=== PATIENT | female | born 2000 | race Caucasian/White ===

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

== ENCOUNTER 2020-04-22 12:16 | Emergency (ER) | payer SELFPAY ==
[2020-04-22 12:23] VITALS: BP 136/94; PULSE 84; RESP 16; TEMP 36.7; O2SAT 100; BMI 28.1
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
== END 2020-04-22 12:46 | disposition home or self-care (01) ==
PROVIDERS: Emergency Provider Nurse Practitioner Family; PCP Family Medicine
DX: S41.012A Laceration without foreign body of left shoulder, initial encounter (principal); W25.XXXA Contact with sharp glass, initial encounter; Z87.891 Personal history of nicotine dependence
CPT/HCPCS: 12345; 99281

== ENCOUNTER → 2021-03-06 13:10 | Outpatient (BNVA) | payer OTHER, SELFPAY | PROVIDERS: PCP Family Medicine; Visit Provider Nurse Practitioner Family | DX: Z20.822 Contact with and (suspected) exposure to COVID-19 (principal) | CPT/HCPCS: 87635 ==

== ENCOUNTER 2022-12-24 14:32 | Emergency (ER) | payer SELFPAY ==
[2022-12-24 14:35] VITALS: BP 135/88; PULSE 115; RESP 16; TEMP 37.5; O2SAT 99; BMI 36.0
--- NOTE | 2022-12-24 14:56 | W.ED.FEMALGU ---
HPI - Female Genitourinary General: Chief complaint: Urogenital-Female Stated complaint: urogenital Time Seen by Provider: 12/24/22 14:43 Source: patient Mode of arrival: ambulatory Limitations: no limitations History of Present Illness: 22-year-old female presents to the ER today with 2 days of dysuria, low back pain, and increased urinary frequency. Patient denies any fever or chills. Patient reports she has had 1 other UTI before and this feels similar. Patient denies any chance of . Reports last menstrual cycle was 2 weeks ago. Patient has not taken anything [id number] for her symptoms at this time. Review of Systems General: Reports: 10 or more systems reviewed and unremarkable except in HPI and below PFSH ED PFSH: Medical History (Updated 12/24/22 @ 16:08 by Deann Mccormick PA-C) No pertinent past medical history Surgical History No history of previous surgery Social History Smoking and tobacco status: former smoker Alcohol intake: never Substance/Drug Use: never Physical Exam Const: COMMON NORMALS: no acute distress, average body habitus, patient oriented x3, no limitations, healthy appearing, alert and well nourished Resp: COMMON NORMALS: normal respiratory effort EFFORT & INSPECTION: Yes able to speak in complete sentences Cardio: COMMON NORMALS: regular rate, regular rhythm and No murmurs present (Cardio) RATE: regular rate RHYTHM: regular rhythm GI: COMMON NORMALS: Normal to inspection, nondistended, normoactive bowel sounds present, Soft to palpation and non-tender PALPATION: Yes Soft to palpation OTHER: No CVA tenderness, no flank tenderness, no suprapubic tenderness on exam : COMMON NORMALS: Yes no CVA tenderness BLADDER/KIDNEY EXAM: Yes no CVA tenderness Back/Pelvis: COMMON NORMALS: no CVA tenderness Extremity: COMMON NORMALS: normal to inspection and full ROM Neuro: COMMON NORMALS: patient oriented x3 SENSORIUM/ORIENTATION: Yes alert Psych: COMMON NORMALS: mental status grossly normal, Normal thought process present and cooperative THOUGHT PROCESS: Normal thought process present Skin: COMMON NORMALS: no rashes or lesions noted and no wounds GENERAL SKIN EXAM: no rashes or lesions noted Course ED course: Patient presents to the ER today for urinary symptoms x2 days. Patient is noted to have a low-grade temp and mild tachycardia. No suprapubic tenderness. No flank or CVA tenderness. We will get a UA at this time along with a test. Vital Signs: Vital signs: Vital Signs Temperature 99.5 F 12/24/22 14:35 Pulse Rate 115 H 12/24/22 14:35 Respiratory Rate 16 12/24/22 14:35 Blood Pressure 135/88 12/24/22 14:35 Pulse Oximetry 99 12/24/22 14:35 Oxygen Delivery Me thod Room Air 12/24/22 14:35 MDM - Female Medical Decision Making Patient has classic UTI symptoms. UA does indicate a UTI with 3+ blood and 2+ leukocytes. Culture will be sent. Pending test. We will treat with Macrobid x5 days. Push fluids. Okay to take Azo for the next several days for symptom relief. Follow-up with PCP in 3 to 5 days if no improvement. Return to the ER with new or worsening symptoms. Lab Data Laboratory Results Urine Color Yellow (Yellow) 12/24/22 14:41 Urine Appearance Cloudy (CLEAR) A 12/24/22 14:41 Urine pH 8 (5-7) H 12/24/22 14:41 Ur Specific [place] 1.015 (1.005-1.030) 12/24/22 14:41 Urine Protein Neg (Negative) 12/24/22 14:41 Urine Glucose (UA) Norm (Normal) 12/24/22 14:41 Urine Ketones Negative (Negative) 12/24/22 14:41 Urine Blood 3+ (Negative) H 12/24/22 14:41 Urine Nitrate Negative (Negative) 12/24/22 14:41 Urine Bilirubin Neg (Negative) 12/24/22 14:41 Urine Urobilinogen Norm mg/dL (Negative) 12/24/22 14:41 Ur Leukocyte Esterase 2+ (Negative) H 12/24/22 14:41 Urine RBC 10-15 /hpf (0-2) H 12/24/22 14:41 Urine WBC 55-80 /hpf (0-5) H 12/24/22 14:41 Ur Squamous Epith Cells 0-4 /hpf (0-5) H 12/24/22 14:41 Amorphous Sediment Not Reportable 12/24/22 14:41 Urine Bacteria Trace /hpf (NONE) 12/24/22 14:41 Urine Mucus 1+ /hpf 12/24/22 14:41 Critical Care Time Critical Care Time: Critical Care Time: No Discharge Plan Discharge Patient Disposition: Home Clinical Impression: Urinary tract infection Qualifiers: Urinary tract infection type: acute cystitis Hematuria presence: with hematuria Qualified Code(s): N30.01 - Acute cystitis with hematuria Condition: Stable Prescriptions: New Macrobid 100 mg capsule 100 mg PO BID 5 Days Qty: 10 0RF Rx Instructions: must administer with a meal/food Discharge Orders: Discharge ED (Routine); Ordered 12/24/22 Ordered By: Deann Mccormick Discharge Diet: Usual diet Discharge Activity: Resume usual activity Patient Instructions: Opioid Safety, Pain Management Activity Restrictions/Additional Instructions: Take Macrobid as prescribed. Push fluids. Okay to use [id number] Azo Standard for symptomatic relief for the next 48 hours. Follow-up with PCP in 3 to 5 days if no improvement. Return to ER with new or worsening symptoms. Coding Level of Care Code ED Plate Corrector for Silva Levi
[2022-12-24 16:05] LABS: Add Urine Microscopic? YES; Bilirubin Urine Neg (Negative); Blood Urine 3+ (Negative); Glucose Urine UA Norm (Normal); Ketones Urine Negative (Negative); Leukocyte Esterase Urine 2+ (Negative); Nitrate Urine Negative (Negative); Protein Urine Neg (Negative); Specific Gravity, Urine 1.015 (1.005-1.030); Urine Appearance Cloudy (CLEAR); Urine Color Yellow (Yellow); Urobilinogen Urine Norm (Negative); pH Urine 8 (5-7)
[2022-12-24 16:06] LABS: Add Urine Culture? Yes; Bacteria Urine TRACE /hpf; Mucus Urine 1+ /hpf; Squamous Epithelial Cell Urine 0-4 /hpf (0-5); WBC Urine 55-80 /hpf (0-5)
[2022-12-24 16:32] LABS: HCG Qualitative Urine. Negative (Negative)
--- NOTE | 2022-12-31 10:03 | DCPLANNER ---
farm field manager called patient due to no primary care physician - no answer at this time.
== END 2022-12-24 16:15 | disposition home or self-care (01) ==
PROVIDERS: Emergency Provider Physician Assistant
DX: N30.01 Acute cystitis with hematuria (principal); Z87.891 Personal history of nicotine dependence
CPT/HCPCS: 81001; 81025; 87086; 99283

== ENCOUNTER 2023-01-04 13:24 | Emergency (ER) | payer SELFPAY ==
[2023-01-04 13:44] VITALS: BP 129/85; PULSE 76; RESP 16; TEMP 36.9; O2SAT 100; BMI 36.0
--- NOTE | 2023-01-04 13:57 | W.ED.FEMALGU ---
HPI - Female Genitourinary General: Chief complaint: Urogenital-Female Stated complaint: urogenital Time Seen by Provider: 01/04/23 13:55 Source: patient Mode of arrival: ambulatory Limitations: no limitations History of Present Illness: Patient is a 22-year-old female presents to ED today with a complaint of right-sided pelvic pain, difficulty with urination, lower back pain. She was seen here approximately 10 days ago and had some complaints of dysuria at that time. UA looks suspicious for UTI (had 2+ leuks and 55-80 wbcs) thus patient was placed on antibiotics (Macrobid). She states she has finished her antibiotic course. Urine was cultured and I was able to view these results which showed mixed superficial raheem. Patient states her symptoms have progressively worsened since that visit. She states she recently started her menstrual cycle but states that the cramping and pain that she has having is not characteristic of menstrual cramps. Patient states she has had a new sexual partner within the last month. She states he is in the and thinks he gets frequent STD testing. She states she has not noticed any worsening vaginal discharge apart from her normal . Her main complaint is feeling like she cannot urinate/empty bladder. MD elicited complaint: pelvic pain, difficulty urinating and other (difficulty urinating, R pelvic pain, low back pain) Onset (ago): day(s) Severity: moderate Quality of pain: cramping and sharp Consistency: constant Vaginal bleeding: moderate Urinary symptoms: Difficulty Urinating Exacerbating factors: urination Relieving factors: none Associated symptoms: Reports no associated symptoms, abdominal pain, nausea and vaginal bleeding (small amount of menstrual blood); Deny headache(s) Treatment prior to arrival: none Sexual activity: Yes and New Sexual Partners Patient : No Review of Systems Const: Denies: fever(s), chills, body aches, fatigue or malaise Card: Denies: chest pain Resp: Denies: dyspnea GI: Reports: abdominal pain, nausea and constipation; Denies: vomiting, rectal pain, rectal itching, hematochezia or melena : Reports: difficulty voiding, vaginal bleeding and pelvic pain; Denies: flank pain, dysuria, urinary frequency, urinary urgency, urinary hesitancy, hematuria or vaginal odor Musc: Reports: back pain; Denies: neck pain, extremity pain or joint pain Skin/Breast: Denies: rash Neuro: Denies: headache(s), numbness in extremities, weakness in extremities or sensory changes PFSH ED PFSH: Medical History (Updated 01/04/23 @ 17:19 by DIPTI Sanchez) No pertinent past medical history Surgical History No history of previous surgery Social History Smoking and tobacco status: former smoker Alcohol intake: never Substance/Drug Use: never Physical Exam Const: COMMON NORMALS: no acute distress, patient oriented x3, no limitations, alert and well nourished GENERAL APPEARANCE: cooperative NUTRITIONAL APPEARANCE: obese ORIENTATION/CONSCIOUSNESS: Yes awake, Yes oriented to person, Yes oriented to place and Yes oriented to time Resp: COMMON NORMALS: normal respiratory effort and clear to auscultation bilaterally AUSCULTATION: clear to auscultation bilaterally Cardio: COMMON NORMALS: regular rate and regular rhythm RATE: regular rate RHYTHM: regular rhythm GI: COMMON NORMALS: Normal to inspection, nondistended, normoactive bowel sounds present, Soft to palpation, No hepatosplenomegaly present and no masses INSPECTION: Yes normal to inspection AUSCULTATION: Yes normoactive bowel sounds PALPATION: Yes Soft to palpation, Yes Tenderness to palpation present (GI), No Guarding due to palpation present (GI), No Rigid due to palpation and Yes No hepatosplenomegaly present OTHER: patient is seated in a recliner making examination less than ideal but she seems to have most of her discomfort to her R pelvis; did not seem to have tenderness overlying McBurney's Point; patient will eventually be moved to a room for pelvic exam : COMMON NORMALS: Yes no CVA tenderness and Yes normal bimanual exam BLADDER/KIDNEY EXAM: Yes no CVA tenderness EXTERNAL FEMALE EXAM: Yes normal appearance of the urethra SPECULUM EXAM - VAGINA: Yes vaginal bleeding (small amount of menstrual blood) and No tissue present in vagina SPECULUM EXAM - CERVIX: No mucoid cervix, No watery cervix, No Abnormal cervical discharge present and No Cervical lesion present BIMANUAL EXAM - VAGINA & UTERUS: Yes normal bimanual exam OB/EXTERNAL & SPECULUM: vaginal bleeding (small amount of menstrual blood); no tissue noted in vagina Back/Pelvis: COMMON NORMALS: no CVA tenderness, thoracic and lumbar spine normal to inspection, no thoracic nor lumbar tenderness and thoraco-lumbar ROM normal Extremity: COMMON NORMALS: normal to inspection GENERAL: Yes normal exam except as noted Neuro: SURINDER COMA SCALE: document GCS findings Mas[place] coma scale eye opening: Spontaneous Mas[place] coma scale verbal response: Orientated Surinder coma scale motor response: Obey commands Masury coma scale total score: 15 COMMON NORMALS: patient oriented x3 SENSORIUM/ORIENTATION: Yes alert, Yes oriented to person, Yes oriented to place and Yes oriented to time Course ED course: Post-void residual urine volume roughly 150ml Vital Signs: Vital signs: Vital Signs Temperature 98.4 F 01/04/23 13:44 Pulse Rate 69 01/04/23 17:31 Respiratory Rate 16 01/04/23 17:01 Blood Pressure 134/81 01/04/23 17:31 Pulse Oximetry 97 01/04/23 17:31 Oxygen Delivery Me thod Room Air 01/04/23 17:01 MDM - Female Medical Decision Making Patient's ultrasound showing findings most likely related to her menstrual cycle. This can be reevaluated through women's health which I have placed a referral for. She does have a right ovary that demonstrates PCOS. This could be the etiology of her right-sided pelvic pain. On her pelvic exam I do not appreciate any findings consistent with a PID. Wet prep is normal. Gonorrhea/chlamydia is pending. Patient's symptoms of difficulty with urination and lower back pain seem consistent with an acute cystitis. On her UA today she did have positive nitrates, 2+ leuks, 10-15 WBCs, 4+ bacteria. She did have a large amount of blood but she is currently on her menstrual cycle. At this time I would favor cystitis versus STI/PID. We will go ahead and place her on Cipro. We will culture urine. I did go ahead and place referrals for women's health as well as a primary care provider for further follow-up. Lab Data 01/04/23 14:06 01/04/23 14:06 Radiology Impressions Pelvic/Transvag US 01/04/23 15:03 IMPRESSION: 1. Mildly distended endometrial canal with increased echogenicity. Favor blood products and may be related to the patient's menstrual cycle. This should be reevaluated after the menstrual cycle has resolved. 2. RIGHT ovary demonstrates PCOS. The LEFT ovary is only visualized on transabdominal imaging and also mildly enlarged. Peripheral follicles that would support PCOS are not well seen. Laboratory Results WBC 11.1 10^3/uL (4.0-10.0) H 01/04/23 14:06 RBC 4.35 10^6/uL (4.1-5.3) 01/04/23 14:06 Hgb 12.2 g/dL (11.5-15.3) 01/04/23 14:06 Hct 38.9 % (37.0-47.0) 01/04/23 14:06 MCV 89.4 fl (81-99) 01/04/23 14:06 MCH 28.0 pg (28.0-34.0) 01/04/23 14:06 MCHC 31.4 g/dL (30.0-36.0) 01/04/23 14:06 RDW 12.9 % (12.1-15.1) 01/04/23 14:06 Plt Count 332 10^3/cmm (130-400) 01/04/23 14:06 MPV 9.7 fL (7.4-10.4) 01/04/23 14:06 Neut % (Auto) 69.6 % 01/04/23 14:06 Lymph % (Auto) 21.0 % 01/04/23 14:06 [place] % (Auto) 8.1 % 01/04/23 14:06 Eos % (Auto) 0.3 % 01/04/23 14:06 Baso % (Auto) 0.5 % 01/04/23 14:06 Neut # (Auto) 7.71 10^3/uL (1.8-7.7) H 01/04/23 14:06 Lymph # (Auto) 2.3 10^3/uL (0.8-4.8) 01/04/23 14:06 [place] # (Auto) 0.9 10^3/uL (0.2-0.9) 01/04/23 14:06 Eos # (Auto) 0.0 10^3/uL (0.0-0.8) 01/04/23 14:06 Baso # (Auto) 0.1 10^3/uL (0.0-0.1) 01/04/23 14:06 Nucleated RBC % (auto) 0 % 01/04/23 14:06 Nucleated RBCs # 0.0 /100WBC 01/04/23 14:06 Sodium 136 mmol/L (136-145) 01/04/23 14:06 Potassium 3.7 mmol/L (3.5-5.1) 01/04/23 14:06 Chloride 101 mmol/L (98-107) 01/04/23 14:06 Carbon Dioxide 25 mmol/L (22-29) 01/04/23 14:06 Anion Gap 13.7 (5-19) 01/04/23 14:06 BUN 8 mg/dL (6-20) 01/04/23 14:06 Creatinine 0.8 mg/dL (0.5-0.9) 01/04/23 14:06 GFR Calculation 89.7 mL/min (90-130) L 01/04/23 14:06 Glucose 101 mg/dL (65-115) 01/04/23 14:06 Calculated Osmolality 280 mOsm/kg (285-295) L 01/04/23 14:06 Calcium 9.0 mg/dL (8.5-10.5) 01/04/23 14:06 Total Bilirubin 0.3 mg/dL (0.15-1.2) 01/04/23 14:06 AST 16 U/L (0-32) 01/04/23 14:06 ALT 21 U/L (0-33) 01/04/23 14:06 Alkaline Phosphatase 72 U/L (35-105) 01/04/23 14:06 Total Protein 8.0 g/dL (6.6-8.7) 01/04/23 14:06 Albumin 4.3 g/dL (3.5-5.2) 01/04/23 14:06 Globulin 3.7 g/dL (1.3-4.6) 01/04/23 14:06 HCG, Qual Negative (Negative) 01/04/23 14:06 Urine Color Red (Yellow) 01/04/23 16:06 Urine Appearance Turbid (CLEAR) A 01/04/23 16:06 Urine pH 5 (5-7) 01/04/23 16:06 Ur Specific [place] 1.010 (1.005-1.030) 01/04/23 16:06 Urine Protein 1+ (Negative) H 01/04/23 16:06 Urine Glucose (UA) Norm (Normal) 01/04/23 16:06 Urine Ketones Negative (Negative) 01/04/23 16:06 Urine Blood 3+ (Negative) H 01/04/23 16:06 Urine Nitrate Positive (Negative) H 01/04/23 16:06 Urine Bilirubin Neg (Negative) 01/04/23 16:06 Urine Urobilinogen Norm mg/dL (Negative) 01/04/23 16:06 Ur Leukocyte Esterase 2+ (Negative) H 01/04/23 16:06 Urine RBC 50-80 /hpf (0-2) H 01/04/23 16:06 Urine WBC 10-15 /hpf (0-5) H 01/04/23 16:06 Ur Squamous Epith Cells 0-4 /hpf (0-5) H 01/04/23 16:06 Amorphous Sediment Not Reportable 01/04/23 16:06 Urine Bacteria 4+ /hpf (NONE) H 01/04/23 16:06 Urine Mucus 2+ /hpf 01/04/23 16:06 Discharge Plan Discharge Patient Disposition: Home Clinical Impression: Cystitis Condition: Stable Prescriptions: New Cipro 500 mg tablet 500 mg PO Q12H Qty: 14 0RF Discharge Orders: Discharge ED (Routine); Ordered 01/04/23 Ordered By: Brynn Carrasquillo Coding Level of Care Code ED Director Of Vocational Training for Silva Levi
[2023-01-04 14:39] LABS: Basophils # 0.1 10^3/uL (0.0-0.1); Basophils % 0.5 %; Eosinophils % 0.3 %; Hematocrit 38.9 % (37.0-47.0); Hemoglobin 12.2 g/dL (11.5-15.3); Lymphocytes # 2.3 10^3/uL (0.8-4.8); Mean Corpuscular HGB Conc 31.4 g/dL (30.0-36.0); Mean Corpuscular Volume 89.4 fl (81-99); Mean Platelet Volume 9.7 fL (7.4-10.4); Monocytes # 0.9 10^3/uL (0.2-0.9); Monocytes % 8.1 %; Neutrophils # 7.71 10^3/uL (1.8-7.7); Neutrophils % 69.6 %; Nucleated Red Blood Cells % 0 %; Platelet Count 332 10^3/cmm (130-400); Red Blood Count 4.35 10^6/uL (4.1-5.3); Red Cell Distribution Width 12.9 % (12.1-15.1); White Blood Count 11.1 10^3/uL (4.0-10.0)
[2023-01-04 14:55] LABS: Alanine Aminotransferase 21 U/L (0-33); Albumin Level 4.3 g/dL (3.5-5.2); Alkaline Phosphatase 72 U/L (35-105); Anion Gap 13.7 (5-19); Aspartate Amino Transferase 16 U/L (0-32); Blood Urea Nitrogen 8 mg/dL (6-20); Carbon Dioxide 25 mmol/L (22-29); Chloride 101 mmol/L (98-107); Globulin 3.7 g/dL (1.3-4.6); Glomerular Filtration Rate 89.7 mL/min (90-130); Glucose 101 mg/dL (65-115); Osmolality Calculated 280 mOsm/kg (285-295); Potassium 3.7 mmol/L (3.5-5.1); Sodium 136 mmol/L (136-145); Total Bilirubin 0.3 mg/dL (0.15-1.2)
[2023-01-04 14:56] LABS: HCG, Serum Qual Negative (Negative)
--- NOTE | 2023-01-04 15:03 | US_ITS ---
WS: [id number] US pelv w/transvag [id number] HISTORY: R pelvic pain COMPARISON: None available. Uterus: 5.1 cm x 4.4 cm x 3.6 cm. Anteverted uterus is small caliber. No fibroid. Endometrium: 1.5 cm. Abnormal appearance of the endometrial canal. There is increased echogenicity wi thin the endometrial canal with distention and loss of the normal junctional zone. Right ovary: 4.4 cm x 3.2 cm x 2.1 cm. Volume 15.6 cc. Enlarged ovary with numerous peripheral follic les of similar size. Number of follicles greater than 20. Consistent with polycystic ovarian syndrome . Left ovary: 3.2 cm x 2.1 cm x 2.9 cm. Volume 10.3 cc. Mildly enlarged ovary. There is several small p eripheral follicles. This ovary as only visualized on transverse abdominal exam. No free fluid in the cul-de-sac. US/US pelv w/transvag [id number] IMPRESSION: 1. Mildly distended endometrial canal with increased echogenicity. Favor blood products and may be related to the patient's menstrual cycle. This should be r eevaluated after the menstrual cycle has resolved. 2. RIGHT ovary demonstrates PCOS. The LEFT ovary is only visualized on transa bdominal imaging and also mildly enlarged. Peripheral follicles that would supp ort PCOS are not well seen.
[2023-01-04 16:32] LABS: Add Urine Microscopic? YES; Bilirubin Urine Neg (Negative); Blood Urine 3+ (Negative); Glucose Urine UA Norm (Normal); Ketones Urine Negative (Negative); Leukocyte Esterase Urine 2+ (Negative); Nitrate Urine Positive (Negative); Protein Urine 1+ (Negative); Urine Appearance Turbid (CLEAR); Urine Color Red (Yellow); Urobilinogen Urine Norm (Negative); pH Urine 5 (5-7)
[2023-01-04 16:33] LABS: RBC Urine 50-80 /hpf (0-2)
[2023-01-04 16:35] LABS: Add Urine Culture? Yes; Bacteria Urine 4+ /hpf; Mucus Urine 2+ /hpf; Squamous Epithelial Cell Urine 0-4 /hpf (0-5)
[2023-01-04 17:01] VITALS: BP 127/83; PULSE 86; RESP 16; O2SAT 99
[2023-01-04 17:31] VITALS: BP 134/81; PULSE 69; O2SAT 97
--- NOTE | 2023-01-05 07:57 | DCPLANNER ---
Addendum entered by Mariela Youngblood 02/04/23 11:02: Patient had a follow up appointment scheduled with [facility] - patient did not attend appointment Addendum entered by Mariela Youngblood 01/05/23 11:03: Patient has a follow up appointment scheduled for Tuesday, February 02, 2023 at 2:30 with Kacy Silva at [facility]. Original Note: e business project manager had message to schedule a follow up appointment for patient with [facility]. e business project manager sent patients information to the front office staff at [facility]. Patients information will be printed and reviewed. Clinic will call patient with appointment information.
--- NOTE | 2023-01-05 09:40 | DCPLANNER ---
government sales manager called patient due to no primary care physician. Patient stated that she does not have any insurance at this time. government sales manager gave patient the information for [facility], where patient can apply for the sliding scale.
== END 2023-01-04 17:30 | disposition home or self-care (01) ==
PROVIDERS: Emergency Provider Physician Assistant
DX: M54.50 Low back pain, unspecified (principal); N30.90 Cystitis, unspecified without hematuria
CPT/HCPCS: 36415; 51798; 76830; 76856; 80053; 81001; 84703; 85025; 87077; 87086; 87186; 87210; 87491; 87591; 99284; E0352

== ENCOUNTER 2023-12-23 05:44 | Inpatient (IN) | payer SELFPAY ==
[2023-12-23 05:44] VITALS: BP 157/109; PULSE 135; RESP 16; TEMP 36.8; O2SAT 97; BMI 25.0
--- NOTE | 2023-12-23 05:54 | W.ED.PSYCHS ---
HPI - Psych General: Chief Complaint: Psychiatric Symptoms Stated Complaint: SI Time Seen by Provider: 12/23/23 05:46 Source: patient, EMS and police Mode of arrival: EMS Limitations: no limitations History of Present Illness: 23-year-old female states she been depressed for quite some time she states that she is having active suicidal thoughts currently no longer wants to live. She is not on any medication she states she does not have a psychiatrist and needs help. Denies any worse improving factors she is tearful and anxious here. Associated symptoms: Reports depression and suicidal ideation Review of Systems Const: Denies: fever(s), chills, body aches or change in appetite ENMT: Denies: throat pain or dental pain Card: Denies: chest pain Resp: Denies: dyspnea GI: Denies: abdominal pain, nausea, vomiting or diarrhea Musc: Denies: neck pain or back pain Skin/Breast: Denies: rash Neuro: Denies: headache(s) Psych: Reports: depression and suicidal ideation [facility] ED PFSH: Medical History (Updated 12/23/23 @ 06:58 by Phani Gruber MD) No pertinent past medical history Surgical History No history of previous surgery Family History Denies family history of Colon cancer Ovarian cancer Diabetes Heart disease Hyperlipidemia Breast cancer Hypertension Uterine cancer Thyroid disease Stroke Physical Exam Const: COMMON NORMALS: no acute distress, patient oriented x3 and healthy appearing HENMT: COMMON NORMALS: normocephalic and atraumatic HEAD & SCALP: normocephalic and atraumatic Neck/C-Spine: COMMON NORMALS: full ROM and supple Chest: COMMONS NORMALS: normal inspection of the chest Resp: COMMON NORMALS: normal respiratory effort Extremity: COMMON NORMALS: normal to inspection and full ROM Neuro: COMMON NORMALS: patient oriented x3, moves all extremities and no focal motor deficits Psych: COMMON NORMALS: mental status grossly normal, Normal thought process present and cooperative THOUGHT PROCESS: Normal thought process present THOUGHT CONTENT: Yes Suicidality present Skin: COMMON NORMALS: no rashes or lesions noted and no wounds GENERAL SKIN EXAM: no rashes or lesions noted Course Vital Signs: Vital signs: Vital Signs Temperature 98.3 F 12/23/23 05:44 Pulse Rate 135 H 12/23/23 05:44 Respiratory Rate 16 12/23/23 05:44 Blood Pressure 157/109 12/23/23 05:44 Pulse Oximetry 97 12/23/23 05:44 MDM - Psych Medical Decision Making Patient presents here with depression along with suicidal ideations she is medically cleared spoke to psychiatrist will admit at this time. Medical Records I reviewed the patient's medical records. Lab Data I reviewed the patient's lab results. 12/23/23 06:05 12/23/23 06:05 Laboratory Results WBC 11.59 10^3/uL (3.29-11.43) H 12/23/23 06:05 RBC 4.59 10^6/uL (3.85-5.65) 12/23/23 06:05 Hgb 12.60 g/dL (11.27-16.99) 12/23/23 06:05 Hct 40.1 % (36-47) 12/23/23 06:05 MCV 87.4 fl (85-98) 12/23/23 06:05 MCH 27.5 pg (27-33) 12/23/23 06:05 MCHC 31.4 g/dL (30-55) 12/23/23 06:05 RDW 13.2 % (12.1-15.1) 12/23/23 06:05 Plt Count 310 10^3/cmm (157-399) 12/23/23 06:05 MPV 10.8 fL (7.4-10.4) H 12/23/23 06:05 Neut % (Auto) 56.8 % 12/23/23 06:05 Lymph % (Auto) 35.5 % 12/23/23 06:05 [place] % (Auto) 5.5 % 12/23/23 06:05 Eos % (Auto) 1.5 % 12/23/23 06:05 Baso % (Auto) 0.4 % 12/23/23 06:05 Neut # (Auto) 6.58 10^3/uL (1.8-7.7) 12/23/23 06:05 Lymph # (Auto) 4.1 10^3/uL (0.8-4.8) 12/23/23 06:05 [place] # (Auto) 0.6 10^3/uL (0.2-0.9) 12/23/23 06:05 Eos # (Auto) 0.2 10^3/uL (0.0-0.8) 12/23/23 06:05 Baso # (Auto) 0.1 10^3/uL (0.0-0.1) 12/23/23 06:05 Nucleated RBC % (auto) 0 % 12/23/23 06:05 Nucleated RBCs # 0.0 /100WBC 12/23/23 06:05 Sodium 138 mmol/L (136-145) 12/23/23 06:05 Potassium 3.5 mmol/L (3.5-5.1) 12/23/23 06:05 Chloride 103 mmol/L (98-107) 12/23/23 06:05 Carbon Dioxide 22 mmol/L (22-29) 12/23/23 06:05 Anion Gap 16.5 (5-19) 12/23/23 06:05 BUN 9 mg/dL (6-20) 12/23/23 06:05 Creatinine 0.7 mg/dL (0.5-0.9) 12/23/23 06:05 GFR Calculation 103.7 mL/min (90-130) 12/23/23 06:05 Glucose 104 mg/dL (65-115) 12/23/23 06:05 Calculated Osmolality 285 mOsm/kg (285-295) 12/23/23 06:05 Calcium 9.1 mg/dL (8.5-10.5) 12/23/23 06:05 Total Bilirubin 0.2 mg/dL (0.15-1.2) 12/23/23 06:05 AST 40 U/L (0-32) H 12/23/23 06:05 ALT 57 U/L (0-33) H 12/23/23 06:05 Alkaline Phosphatase 92 U/L (35-105) 12/23/23 06:05 Total Protein 8.8 g/dL (6.6-8.7) H 12/23/23 06:05 Albumin 4.2 g/dL (3.5-5.2) 12/23/23 06:05 Globulin 4.6 g/dL (1.3-4.6) 12/23/23 06:05 HCG, Qual Negative (Negative) 12/23/23 05:44 Salicylates < 0.3 mg/dL (3-10) L 12/23/23 06:05 Acetaminophen < 5.0 ug/mL (10-30) L 12/23/23 06:05 Ethyl Alcohol 191 mg/dL (0-10) H 12/23/23 06:05 No radiology studies performed this visit Discharge Plan Discharge Patient Disposition: Admitted As Inpatient Clinical Impression: Suicidal ideation Condition: Stable Prescriptions: No Action Cipro 500 mg tablet 500 mg PO Q12H Qty: 14 0RF Coding Level of Care Code ED Motor Assembly Supervisor for Anjalig Gurmeet
[2023-12-23 06:02] LABS: HCG Qualitative Urine. Negative (Negative)
[2023-12-23 06:18] LABS: Basophils # 0.1 10^3/uL (0.0-0.1); Basophils % 0.4 %; Eosinophils # 0.2 10^3/uL (0.0-0.8); Eosinophils % 1.5 %; Hematocrit 40.1 % (36-47); Lymphocytes # 4.1 10^3/uL (0.8-4.8); Lymphocytes % 35.5 %; Mean Corpuscular HGB Conc 31.4 g/dL (30-55); Mean Corpuscular Hemoglobin 27.5 pg (27-33); Mean Corpuscular Volume 87.4 fl (85-98); Mean Platelet Volume 10.8 fL (7.4-10.4); Monocytes # 0.6 10^3/uL (0.2-0.9); Monocytes % 5.5 %; Neutrophils # 6.58 10^3/uL (1.8-7.7); Neutrophils % 56.8 %; Nucleated Red Blood Cells % 0 %; Platelet Count 310 10^3/cmm (157-399); Red Blood Count 4.59 10^6/uL (3.85-5.65); Red Cell Distribution Width 13.2 % (12.1-15.1); White Blood Count 11.59 10^3/uL (3.29-11.43)
--- NOTE | 2023-12-23 06:20 | PC.NURSE ---
96 Hour Involuntary Hold Patient Rights have been read to the patient and a copy of the same has been given to her.
[2023-12-23 06:33] LABS: Alanine Aminotransferase 57 U/L (0-33); Albumin Level 4.2 g/dL (3.5-5.2); Alcohol Level 191 mg/dL (0-10); Alkaline Phosphatase 92 U/L (35-105); Anion Gap 16.5 (5-19); Aspartate Amino Transferase 40 U/L (0-32); Blood Urea Nitrogen 9 mg/dL (6-20); Calcium 9.1 mg/dL (8.5-10.5); Carbon Dioxide 22 mmol/L (22-29); Chloride 103 mmol/L (98-107); Creatinine Clr Calc Pharmacy 130.2124; Globulin 4.6 g/dL (1.3-4.6); Glomerular Filtration Rate 103.7 mL/min (90-130); Glucose 104 mg/dL (65-115); Osmolality Calculated 285 mOsm/kg (285-295); Potassium 3.5 mmol/L (3.5-5.1); Sodium 138 mmol/L (136-145); Total Bilirubin 0.2 mg/dL (0.15-1.2); Total Protein 8.8 g/dL (6.6-8.7)
[2023-12-23 06:35] LABS: Acetaminophen < 5.0 ug/mL (10-30); Salicylate < 0.3 mg/dL (3-10)
[2023-12-23 06:56] LABS: Slide Review Slide Review Perform
[2023-12-23 07:05] VITALS: BP 128/85; PULSE 103; RESP 16; TEMP 36.6; O2SAT 97
[2023-12-23 07:16] LABS: Amphetamines Screen Urine Negative (Negative); Barbiturates Screen Urine Negative (Negative); Benzodiazepines Screen Urine Negative (Negative); Cocaine Screen Urine Negative (Negative); Opiate Screen Urine Negative (Negative); PCP Screen Urine Negative (Negative); THC Screen Urine Negative (Negative)
[2023-12-23 08:40] VITALS: BP 132/82; PULSE 102; RESP 16; TEMP 36.6
[2023-12-23] MEDS: folic acid 1 mg Tablet PO (09:18)
[2023-12-23] MEDS: thiamine 100 mg Tablet PO (09:18)
[2023-12-23] MEDS: multivitamin therapeutic Tablet 1 TAB PO (09:18)
[2023-12-23] MEDS: nicotine 4 mg lozenge MUCOUS MEM (09:23)
--- NOTE | 2023-12-23 09:40 | PC.NURSE ---
Patient states she began to feel suicidal and cut her arms with a soda can after she and her boyfriend broke up and he told her to kill herself. She denies having any other factors increasing her depression at this time. She denies any avh and current si/hi. She says she used to go to therapy when she was 14 years old, but she can't remember where. Patient says she began cutting herself when she was around 12 years old and hasn't cut for about a year, until now. Patient also says her mother attempted suicide when she was approximately 9 years old. She denies any current drug use and does endorse drinking a 12 pack of beer once a week. Patient appears very flat throughout assessment and did not make eye contact with this RN.
--- NOTE | 2023-12-23 10:11 | PC.NURSE ---
Room searched for contraband. None found.
[2023-12-23 14:00] VITALS: BP 134/91; PULSE 86; RESP 20; TEMP 36.6; O2SAT 98
[2023-12-23] MEDS: nicotine 2 mg Gum BUCCAL (15:56)
[2023-12-23 19:28] VITALS: BP 136/85; PULSE 97; RESP 18; TEMP 36.9; O2SAT 99
--- NOTE | 2023-12-23 19:43 | PC.NURSE ---
Patient conversation Patient states she is here because last night just became more than she could handle. States there has been a lot going on and last night became too much. States she began cutting last night and had not cut prior in 3-4 years. States when she realized what she was doing, she knew that she needed help. States she didn't want to trouble her family during the night, so she came to the ED for help.
[2023-12-24] MEDS: nicotine 2 mg Gum BUCCAL ×4 (01:33→20:31)
[2023-12-24 04:00] VITALS: BP 146/83; PULSE 76; RESP 18; TEMP 36.7; O2SAT 97
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
[2023-12-24] MEDS: folic acid 1 mg Tablet PO (07:56)
[2023-12-24] MEDS: multivitamin therapeutic Tablet 1 TAB PO (07:56)
[2023-12-24] MEDS: thiamine 100 mg Tablet PO (07:56)
[2023-12-24 08:00] VITALS: BP 134/88; PULSE 95; RESP 16; TEMP 36.7; O2SAT 97
[2023-12-24] MEDS: fluoxetine 20 mg Capsule PO (08:59)
[2023-12-24 12:00] VITALS: BP 129/88; PULSE 76; RESP 18; TEMP 36.7; O2SAT 98
[2023-12-24 16:00] VITALS: BP 133/88; PULSE 80; RESP 18; TEMP 36.9; O2SAT 98
[2023-12-24 19:38] VITALS: BP 131/97; PULSE 85; RESP 17; TEMP 36.7; O2SAT 97
[2023-12-24 23:52] VITALS: BP 118/75; PULSE 85; RESP 18; TEMP 37.2; O2SAT 97
[2023-12-25 04:00] VITALS: BP 123/74; PULSE 64; RESP 16; TEMP 36.8; O2SAT 99
[2023-12-25 07:31] VITALS: BP 138/80; PULSE 72; RESP 16; TEMP 36.6; O2SAT 97
[2023-12-25] MEDS: nicotine 4 mg lozenge MUCOUS MEM (08:41)
[2023-12-25] MEDS: multivitamin therapeutic Tablet 1 TAB PO (08:41)
[2023-12-25] MEDS: folic acid 1 mg Tablet PO (08:41)
[2023-12-25] MEDS: fluoxetine 20 mg Capsule PO (08:41)
[2023-12-25] MEDS: thiamine 100 mg Tablet PO (08:41)
--- NOTE | 2023-12-25 11:47 | P.NPUPN_ITS ---
Subjective NPU 2 Subjective: Patient presented today reporting that she is doing better on the medication. She denied any side effects of the medication. 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 She talked about feeling like she was ready to discharge soon. We discussed her being on a 96- hour hold and that we would get some collateral information and verify whether discharge soon was safe and in her best interest. She denied any side effects of the medication. Mental Status Exam 2 MSE Comments: This is an overweight versus obese white female in a hospital scrubs with limited grooming and eye contact. No abnormal movements except for psychomotor retardation. Cooperative with exam in mild distress. Speech was decreased rate and volume. Mood described as depressed and feeling overwhelmed, affect congruent. Thought process linear. Thought content: Patient denied any specific suicidal or homicidal ideation, there were no delusions reported or noted, she denied any auditory or visual hallucinations. Attention and concentration were intact and memory was appearing mostly reliable but none were formally tested. She is alert and oriented x 3. Insight and judgment were fair and impulse control was limited versus impaired. Vitals/I&O/Wt Last Vital Signs Temp 97.9 F 12/25/23 07:31 Pulse 72 12/25/23 07:31 Resp 16 12/25/23 07:31 BP 138/80 12/25/23 07:31 Pulse Ox 97 12/25/23 07:31 O2 Del Method Room Air 12/25/23 07:31 Weight last 48 hrs Weight 111.13 kg Data NPU 12/23/23 06:05 12/23/23 06:05 A&P Assessment and plan (1) Major depressive disorder, recurrent: (2) PTSD (post-traumatic stress disorder): (3) Anxiety disorder, unspecified: (4) Alcohol use: (5) Alcohol intoxication: (6) Alcohol withdrawal: (7) Suicidal ideation: Plan This is a 23-year-old white female with a reported history of mental health and likely addiction issues with no significant history of treatment who presents with depression, anxiety suicidal ideation and past trauma open to a trial of medication. 1. Started Prozac 20 mg p.o. daily 2. Recommend sober living treatment after discharge at the highest level of care to which the patient is willing to commit. 3. Continue every 15 minute checks for safety 4. Encourage individual, group and milieu therapies. Involuntary Hold Information 2 96 Hour Hold: 96 Hour Involuntary Admission: Yes 96 Hour Hold Ending Date: 12/30/23 96 Hour Hold Ending Time: 06:00 Attestations NPU 2 Medical Necessity Statement*: Inpatient hospitalization is medically necessary and the?clinically appropriate intervention at this time.? We will monitor/initiate medications and make changes as indicated.? His likely length of stay 2-4 days. Coding Level of Care Code Acute Code for g Fwd Diagnoses Major depressive disorder, recurrent F33.9 PTSD (post-traumatic stress disorder) F43.10 Anxiety disorder, unspecified F41.9 Alcohol use Z78.9 Alcohol intoxication F10.929 Alcohol withdrawal F10.939 Suicidal ideation R45.851
[2023-12-25] MEDS: nicotine 2 mg Gum BUCCAL ×2 (11:56→16:32)
[2023-12-25 12:00] VITALS: BP 146/81; PULSE 87; RESP 16; TEMP 36.9; O2SAT 96
[2023-12-25 14:55] VITALS: BP 126/83; PULSE 82; RESP 16; TEMP 36.6; O2SAT 98
[2023-12-25 19:55] VITALS: BP 122/69; PULSE 90; RESP 16; TEMP 36.7; O2SAT 98
[2023-12-26] VITALS: BP 135/83; PULSE 85; RESP 16; TEMP 36.7; O2SAT 95
[2023-12-26 03:43] VITALS: BP 142/92; PULSE 68; RESP 16; TEMP 36.4; O2SAT 98
[2023-12-26 08:00] VITALS: BP 119/79; PULSE 76; RESP 18; TEMP 36.6; O2SAT 98
[2023-12-26] MEDS: nicotine 2 mg Gum BUCCAL ×4 (08:15→18:01)
[2023-12-26] MEDS: fluoxetine 20 mg Capsule PO (08:16)
[2023-12-26] MEDS: folic acid 1 mg Tablet PO (08:16)
[2023-12-26] MEDS: thiamine 100 mg Tablet PO (08:16)
[2023-12-26] MEDS: multivitamin therapeutic Tablet 1 TAB PO (08:16)
--- NOTE | 2023-12-26 11:38 | P.NPUPN_ITS ---
Subjective NPU 2 Subjective: Patient presented today reporting that she was feeling better overall. She reports optimism about going home and getting things back on track with the medication on board. She denied any side effects to the medication and we discussed social work team return tomorrow and being able to work on discharge planning and aftercare. Mental Status Exam 2 MSE Comments: This is an overweight versus obese white female in a hospital scrubs with limited grooming and eye contact. No abnormal movements except for psychomotor retardation. Cooperative with exam in mild distress. Speech was more normal rate and volume. Mood described as a little better, affect congruent. Thought process linear. Thought content: Patient denied any specific suicidal or homicidal ideation, there were no delusions reported or noted, she denied any auditory or visual hallucinations. Attention and concentration were intact and memory was appearing mostly reliable but none were formally tested. She is alert and oriented x 3. Insight and judgment were fair and impulse control was limited but improving. Vitals/I&O/Wt Last Vital Signs Temp 97.9 F 12/26/23 08:00 Pulse 76 12/26/23 08:00 Resp 18 12/26/23 08:00 BP 119/79 12/26/23 08:00 Pulse Ox 98 12/26/23 08:00 O2 Del Method Room Air 12/26/23 08:00 Weight last 48 hrs Weight 111.13 kg Data NPU 12/23/23 06:05 12/23/23 06:05 A&P Assessment and plan (1) Major depressive disorder, recurrent: (2) PTSD (post-traumatic stress disorder): (3) Anxiety disorder, unspecified: (4) Alcohol use: (5) Alcohol intoxication: (6) Alcohol withdrawal: (7) Suicidal ideation: Plan This is a 23-year-old white female with a reported history of mental health and likely addiction issues with no significant history of treatment who presents with depression, anxiety suicidal ideation and past trauma open to a trial of medication. 1. Started Prozac 20 mg p.o. daily 2. Recommend sober living treatment after discharge at the highest level of care to which the patient is willing to commit. 3. Continue every 15 minute checks for safety 4. Encourage individual, group and milieu therapies. Involuntary Hold Information 2 96 Hour Hold: 96 Hour Involuntary Admission: Yes 96 Hour Hold Ending Date: 12/30/23 96 Hour Hold Ending Time: 06:00 Attestations NPU 2 Medical Necessity Statement*: Inpatient hospitalization is medically necessary and the?clinically appropriate intervention at this time.? We will monitor/initiate medications and make changes as indicated.? His likely length of stay 1-3 days. Coding Level of Care Code Acute Code for [facility] Fwd Diagnoses Major depressive disorder, recurrent F33.9 PTSD (post-traumatic stress disorder) F43.10 Anxiety disorder, unspecified F41.9 Alcohol use Z78.9 Alcohol intoxication F10.929 Alcohol withdrawal F10.939 Suicidal ideation R45.851
--- NOTE | 2023-12-26 12:14 | PC.NURSE ---
Patient's room checked for contraband. None found.
--- NOTE | 2023-12-26 12:14 | PC.NURSE ---
Patient's room checked for contraband. None found.
[2023-12-26 14:00] VITALS: BP 135/85; PULSE 80; RESP 18; TEMP 36.6; O2SAT 98
[2023-12-26 19:42] VITALS: BP 135/83; PULSE 75; RESP 18; TEMP 36.8; O2SAT 99
[2023-12-27 06:00] VITALS: BP 154/89; PULSE 63; RESP 16; TEMP 36.6; O2SAT 96
[2023-12-27] MEDS: nicotine 2 mg Gum BUCCAL ×3 (06:16→12:20)
[2023-12-27] MEDS: multivitamin therapeutic Tablet 1 TAB PO (08:09)
[2023-12-27] MEDS: thiamine 100 mg Tablet PO (08:09)
[2023-12-27] MEDS: folic acid 1 mg Tablet PO (08:10)
[2023-12-27] MEDS: fluoxetine 20 mg Capsule PO (08:10)
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
[2023-12-27 12:34] VITALS: BP 154/89; PULSE 63; RESP 16; TEMP 36.6; O2SAT 96
== END 2023-12-27 14:09 | disposition home or self-care (01) | DRG 885 ==
LOC: ER 06:58 → NP 07:53
PROVIDERS: Admitting Provider Psychiatry & Neurology Psychiatry; Emergency Provider Emergency Medicine; Visit Provider Psychiatry & Neurology Psychiatry
DX: F33.9 Major depressive disorder, recurrent, unspecified (principal); F10.939 Alcohol use, unspecified with withdrawal, unspecified; R45.851 Suicidal ideations; N39.0 Urinary tract infection, site not specified; F43.10 Post-traumatic stress disorder, unspecified; F41.9 Anxiety disorder, unspecified; Y90.6 Blood alcohol level of 120-199 mg/100 ml; Z72.0 Tobacco use
CPT/HCPCS: 80053; 80306; 80307; 81025; 85025; 97165; 99285

== ENCOUNTER → 2024-10-16 10:20 | Outpatient (BNVA) | payer MEDICAID, SELFPAY | PROVIDERS: Visit Provider Nurse Practitioner Women's Health | DX: N93.9 Abnormal uterine and vaginal bleeding, unspecified (principal); R53.83 Other fatigue; N91.5 Oligomenorrhea, unspecified | CPT/HCPCS: 82306; 82728; 83036; 83525; 83540; 84146; 84403; 84439; 84443; 84702; 85025; 88175 ==

== ENCOUNTER → 2024-10-23 11:21 | Outpatient (BNVA) | payer MEDICAID, SELFPAY | PROVIDERS: Visit Provider Nurse Practitioner Women's Health | DX: N83.202 Unspecified ovarian cyst, left side (principal); N83.201 Unspecified ovarian cyst, right side; N85.4 Malposition of uterus; R93.89 Abnormal findings on diagnostic imaging of other specified body structures | CPT/HCPCS: 76830 ==

== ENCOUNTER → 2024-11-28 11:02 | Outpatient (BNVA) | payer MEDICAID, SELFPAY | PROVIDERS: Visit Provider Nurse Practitioner Women's Health | DX: N93.9 Abnormal uterine and vaginal bleeding, unspecified (principal); D64.9 Anemia, unspecified; E03.9 Hypothyroidism, unspecified | CPT/HCPCS: 84439; 84443; 84481; 85025; 86376 ==

== ENCOUNTER → 2025-01-29 12:45 | Outpatient (BNVA) | payer MEDICAID, SELFPAY | PROVIDERS: Visit Provider Emergency Medicine | DX: R39.9 Unspecified symptoms and signs involving the genitourinary system (principal); R30.0 Dysuria | CPT/HCPCS: 81000; 87077; 87086; 87184 ==

== ENCOUNTER → 2025-02-06 15:33 | Outpatient (BNVA) | payer MEDICAID, SELFPAY | PROVIDERS: Visit Provider Nurse Practitioner | DX: R39.9 Unspecified symptoms and signs involving the genitourinary system (principal) | CPT/HCPCS: 81000; 87086 ==

== ENCOUNTER → 2025-02-18 16:29 | Outpatient (BNVA) | payer MEDICAID, SELFPAY | PROVIDERS: Visit Provider Nurse Practitioner Women's Health | DX: Z32.01 Encounter for pregnancy test, result positive (principal) | CPT/HCPCS: 84702 ==

== ENCOUNTER → 2025-03-24 17:49 | Outpatient (BNVA) | payer MEDICAID, SELFPAY | PROVIDERS: Visit Provider Nurse Practitioner | DX: R39.9 Unspecified symptoms and signs involving the genitourinary system (principal) | CPT/HCPCS: 81000; 87086 ==